=== PATIENT | male | born 1980 | race Two or more races ===

== ENCOUNTER 2024-11-02 06:01 | Inpatient (IN) | payer OTHER ==
[2024-11-02] VITALS (12 sets, daily range): BP systolic 138–173; BP diastolic 100–116; TEMP 97–98.2; O2SAT 97–100
[~2024-11-02] VITALS: Ht 177.8 cm; Wt 74.4 kg
[2024-11-02 06:56] LABS: PLATELET COUNT (AUTO) 334 K/uL (150-450); RED BLOOD CELL COUNT(AUTO) 4.75 MIL/uL (4.5-6.0); RED CELL DISTRIBUTION WIDTH 13.7 % (11.5-15.0); WHITE BLOOD COUNT (AUTO) 8.7 K/uL (4.3-11.0)
[2024-11-02 07:04] LABS: CALCIUM, SERUM 8.7 mg/dL (8.5-10.1); CREATININE 1.2 mg/dL (0.6-1.3); SODIUM SERUM 142.0 mmol/L (136-145); UREA NITROGEN, BLOOD 14.0 mg/dL (7-18)
[2024-11-02] MEDS ORDERED: ONDANSETRON HCL/PF 4 MG/2 ML VIAL ONE (08:06)
[2024-11-02] MEDS ORDERED: PIPERACI/TAZO 3.375GM/D5W 50ML PB IV ONE (08:06)
[2024-11-02] MEDS ORDERED: MORPHINE SULFATE INJ 4 MG/ML DISP.SYRIN ONE (08:07)
[2024-11-02] MEDS: IV NS 0.9% 1,000 ML BAG IV ONE (08:20)
[2024-11-02] MEDS: ONDANSETRON HCL/PF 4 MG/2 ML VIAL IV ONE (08:20)
[2024-11-02] MEDS: MORPHINE SULFATE INJ 2 MG/ML DISP.SYRIN IV ONE (08:21)
[2024-11-02] MEDS: PIPERACILLIN /TAZOBACTAM 3.375 G in IV D5W 50 ML IV ONE (08:21)
[2024-11-02 08:24] LABS: INR 0.97 (0.91-1.10)
[2024-11-02 08:36] LABS: APPEARANCE,URINE CLEAR (CLEAR); BLOOD, URINE NEGATIVE Ery/uL (NEGATIVE); LEUKOCYTE ESTERASE ,URINE NEGATIVE (NEGATIVE); NITRITE, URINE NEGATIVE (NEGATIVE); UGLUCOSE NEGATIVE (NEGATIVE)
[2024-11-02 08:39] LABS: ADD URINE CULTURE NO; SQUAMOUS EPITHELIAL CELL,UR Rare /HPF (None Seen)
[2024-11-02] MEDS ORDERED: ONDANSETRON HCL/PF 4 MG/2 ML VIAL IVP PRN (11:30)
[2024-11-02] MEDS ORDERED: MORPHINE SULFATE INJ 2 MG/ML DISP.SYRIN IV PRN (12:00)
[2024-11-02] MEDS: IV D5/0.45 NACL 1,000 ML IV PRN (12:36)
[2024-11-02] MEDS: hydrALAZINE HCL IV 20 MG VIAL IV PRN (12:37)
[2024-11-02] MEDS: POTASSIUM CL. PREMIX PERIPHER. 50 ML IV SCH (20:20)
[2024-11-02] MEDS: HYDROMORPHONE 1 MG/1 ML DISP.SYRIN IV PRN (21:26)
[2024-11-02] MEDS: MIDAZOLAM HCL 2 MG/2ML VIAL IV PRN (21:35)
[2024-11-02] MEDS: SENNOSIDES/DOCUSATE SODIUM 1 TAB TABLET PO ONE (23:03)
[2024-11-02] MEDS: POLYETHYLENE GLYCOL 3350 17 GM POWD.PACK PO ONE (23:03)
[2024-11-03] VITALS (7 sets, daily range): BP systolic 137–172; BP diastolic 92–118; TEMP 97–98.8; O2SAT 99–100
[2024-11-03 07:28] LABS: PLATELET COUNT (AUTO) 345 K/uL (150-450); RED BLOOD CELL COUNT(AUTO) 5.04 MIL/uL (4.5-6.0); RED CELL DISTRIBUTION WIDTH 13.7 % (11.5-15.0); WHITE BLOOD COUNT (AUTO) 7.4 K/uL (4.3-11.0)
[2024-11-03 07:42] LABS: INR 0.98 (0.91-1.10)
[2024-11-03 07:44] LABS: CALCIUM, SERUM 8.7 mg/dL (8.5-10.1); CREATININE 0.8 mg/dL (0.6-1.3); PHOSPHORUS 2.7 mg/dL (2.5-4.9); SODIUM SERUM 138.0 mmol/L (136-145); UREA NITROGEN, BLOOD 6.0 mg/dL (7-18)
[2024-11-03] MEDS: PANTOPRAZOLE 40 MG VIAL IV SCH (08:28)
[2024-11-03] MEDS ORDERED: DOCU100T2 PO (10:36)
[2024-11-03] MEDS ORDERED: POLY119P3 PO (10:36)
== END 2024-11-03 15:15 | DRG 395 ==
LOC: ER 06:03 → MED 10:13 → TELE 11:24
PROVIDERS: ATTEND Nurse Practitioner Family
DX: K40.30 Unilateral inguinal hernia, with obstruction, without gangrene, not specified as recurrent (principal); E87.6 Hypokalemia; F17.210 Nicotine dependence, cigarettes, uncomplicated; F12.90 Cannabis use, unspecified, uncomplicated; Z98.890 Other specified postprocedural states
CPT/HCPCS: 36415; 71045-TC; 80048-TC; 81001; 83605-TC; 83735-TC; 84100-TC; 85025-TC; 85610-TC; 85730-TC; 87040-TC; 87081-TC; A4223; G0378; J0360; J1171; J2250; J2270; J2405; J2470; J2543; J3480; J3490; J7030; J7040; J7060